=== PATIENT | female | born 2000 | race Caucasian/White ===

== ENCOUNTER → 2024-05-20 | Outpatient (REF) | payer OTHER | LOC: M LAB REF 12:59 | PROVIDERS: ATTEND Plastic Surgery Surgery of the Hand | DX: D22.39 Melanocytic nevi of other parts of face (principal); L30.9 Dermatitis, unspecified ==

== ENCOUNTER → 2024-10-14 | Outpatient (REF) | payer OTHER ==
[2024-10-14 19:02] LABS: PROLACTIN 8.73 NG/ML
[2024-10-14 19:03] LABS: LUTEINIZING HORMONE 7.0 mIU/ML
[2024-10-14 19:04] LABS: ESTRADIOL 84.0 PG/ML
[2024-10-14 19:34] LABS: HIV 1&2 SCREEN NEGATIVE (NEGATIVE)
[2024-10-14 19:42] LABS: HEPATITIS C VIRUS ABY INDEX 0.10 INDEX (<0.8)
[2024-10-18 00:52] LABS: HPV APTIMA Not Detected (Not Detected)
== END ==
LOC: M SFHCLERA 08:11
PROVIDERS: ATTEND Student in an Organized Health Care Education/Training Program
DX: Z00.00 Encounter for general adult medical examination without abnormal findings (principal); Z12.4 Encounter for screening for malignant neoplasm of cervix
CPT/HCPCS: 82670; 83001; 83002; 84146; 86803; 87389; 87624; G0123

== ENCOUNTER → 2024-11-12 | Outpatient (CLI) | payer OTHER | LOC: M RAD 06:49 | PROVIDERS: ATTEND Student in an Organized Health Care Education/Training Program | DX: N91.2 Amenorrhea, unspecified (principal) ==

== ENCOUNTER → 2025-02-15 | Outpatient (REF) | payer OTHER ==
[2025-02-15 20:54] LABS: Trichomonas vaginalis (AMP) NOT DETECTED (NEGATIVE)
[2025-02-15 21:18] LABS: GC DNA AMPLIFICATION NEGATIVE (NEGATIVE)
== END ==
LOC: M WUC 19:25
PROVIDERS: ATTEND Student in an Organized Health Care Education/Training Program
DX: R30.0 Dysuria (principal)